=== PATIENT | male | born 1955 | race African-American/Black ===

== ENCOUNTER 2018-06-24 11:52 | Inpatient (IN) | payer BC, OTHER ==
[2018-06-24 15:12] VITALS: BMI 30.8
--- NOTE | 2018-06-24 19:50 | HP ---
"CIWA Score - CIWA Score Nausea/Vomitin-Mild Nausea/No Vomiting Muscle Tremors: 4-Moderate,w/Arms Extend Anxiety: 4-Mod. Anxious/Guarded Agitation: 4-Moderately Restless Paroxysmal Sweats: 1-Minimal Palms Moist Orientation: 1-Uncertain about Date Tacttile Disturbances: 0-None Auditory Disturbances: 0-None Visual Disturbances: 0-None Headache: 2-Mild CIWA-Ar Total Score: 17 Admission ROS BHS - HPI Chief Complaint: Here for alcohol withdrawal. Allergies/Adverse Reactions: Allergies Allergy/AdvReac Type Severity Reaction Status Date / Time No Known Allergies Allergy Verified 06/24/18 16:52 History of Present Illness: Alcohol use since age 16. Denies other substances. Denies seizures. Hx blackouts. Hx Myocardial Infract. Cardiac stent 2008. On Plavix, ASA Diabetes. Hypertension GERD Numbness in hands r/t carpal tunnel Pain in feet r/t DMK and taking Lyrica Last took all medications on 06/23/18 except for insulin, which took today. will bring Trulicity and Tresiba diabetic medications. States takes Tresiba once/week on Mondays. Search Terms: Cristofer Brito, 1955 Search Date: 06/24/2018 08:17:02 PM The Drug Utilization Report below displays all of the controlled substance prescriptions, if any, that your patient has filled in the last twelve months. The information displayed on this report is compiled from pharmacy submissions to the Department, and accurately reflects the information as submitted by the pharmacies. This report was requested by: Brandie Ayala | Reference #: [id number] Patient Name: Cristofer Brito Date: 1955 Address: [address] [place] [address] Sex: Male Rx Written Rx Dispensed Drug Quantity Days Supply Prescriber Name 05/28/2018 05/29/2018 lyrica 150 mg capsule 60 30 Susie De Luna (CORIN) 01/09/2018 01/10/2018 lyrica 150 mg capsule 60 30 Matias Posadas MD 08/03/2017 08/04/2017 lyrica 150 mg capsule 60 30 Jesus Khoury MD Exam Limitations: No Limitations, Language Barrier - Ebola screening Have you traveled outside of the country in the last 21 days: No (N) Have you had contact with anyone from an Ebola affected area: No Have you been sick,other than usual withdrawal symptoms: No Do you have a fever: No - Review of Systems Constitutional: Changes in sleep (Difficulty falling asleep) EENT: reports: No Symptoms Reported Respiratory: reports: No Symptoms reported, Other (Snores) Cardiac: reports: Other (Hx NC, Stents. Denies CP/SOB) GI: reports: Nausea, Indigestion (Acid Reflux resolved protonix) : reports: No Symptoms Reported Musculoskeletal: reports: Joint Swelling ((R) shoulder stiffness) Integumentary: reports: Lesions (Scabby lesion (R) lateral maldonado resulting from fall 2 weeks ago) Neuro: reports: Numbness (Both hands and feet), Tremors, Unsteady Gait ( sometimes) Endocrine: reports: No Symptoms Reported Hematology: reports: No Symptoms Reported Psychiatric: reports: Judgement Intact, Mood/Affect Appropiate, Orientated x3, Agitated, Anxious, Depressed (Denies thoughts of harming self or others) Patient History - Patient Medical History Hx Anemia: No Hx Asthma: No Hx Chronic Obstructive Pulmonary Disease (COPD): No Hx Cancer: No Hx Cardiac Disorders: Yes (MYocardial Infarct, Cardiac stent ) Hx Congestive Heart Failure: No Hx Hypertension: Yes (on meds) Hx Hypercholesterolemia: Yes (on meds) Hx Pacemaker: No HX Cerebrovascular Accident: No Hx Seizures: No Hx Diabetes: Yes (FS 267) Hx Gastrointestinal Disorders: Yes (GERD on protonix) Hx Liver Disease: No Hx Genitourinary Disorders: No Hx Sexually Transmitted Disorders: No Hx Renal Disease (ESRD): No Hx Thyroid Disease: No Hx Human Immunodeficiency Virus (HIV): No Hx Hepatitis C: No Hx Depression: Yes (on meds F/u by PCP @ [facility]) Hx Suicide Attempt: No Hx Bipolar Disorder: No Hx Schizophrenia: No - Patient Surgical History Past Surgical History: Yes Hx Neurologic Surgery: No Hx Cataract Extraction: Yes (YEAR AGO) Hx Cardiac Surgery: No Hx Lung Surgery: No Hx Breast Surgery: No Hx Breast Biopsy: No Hx Abdominal Surgery: No Hx Appendectomy: No Hx Cholecystectomy: No Hx Genitourinary Surgery: No Hx Section: No Hx Orthopedic Surgery: No - PPD History Previous Implant?: Yes Documented Results: Negative w/proof Implanted On Prior R Admission?: Yes Date: 01/14/14 PPD to be Administered?: Yes - Smoking Cessation Smoking history: Former smoker (Stopped in 2008) Have you smoked in the past 12 months: No Hx Chewing Tobacco Use: No Initiated information on smoking cessation: No - Substance & Tx. History Hx Alcohol Use: Yes Hx Substance Use: Yes Substance Use Type: Alcohol Hx Substance Use Treatment: Yes (detox, ) - Substances Abused Alcohol Route: Oral Frequency: Daily Amount used: LIQUOR- 2 PINTS, BEER- 2 SIX PACK Age of first use: 16 Date of Last Use: 06/23/18 Family Disease History - Family Disease History Family Disease History: Diabetes: Mother, Sister, [place]: Sister, Other: Brother ( alcoholics) Admission Physical Exam BHS - Vital Signs Vital Signs: Vital Signs - 24 hr 06/24/18 15:10 Temperature 97.5 F L Pulse Rate 86 Respiratory 20 Rate Blood Pressure 152/87 - Physical General Appearance: Yes: Nourished, Mild Distress, Tremorous, Irritable, Sweating, Anxious HEENTM: Yes: EOMI, Hearing grossly Normal, Normocephalic, Normal Voice, Other ( IOL's bilaterally) Respiratory: Yes: Chest Non-Tender, Lungs Clear, Normal Breath Sounds, No Respiratory Distress Neck: Yes: No masses,lesions,Nodules, Supple Breast: Yes: Breast Exam Deferred Cardiology: Yes: Regular Rhythm, Regular Rate, S1, S2 Abdominal: Yes: Non Tender, Soft, Increased Bowel Sounds, Protuberent ( increased abdomoinal adiposity) Genitourinary: Yes: Within Normal Limits Back: Yes: Normal Inspection Musculoskeletal: Yes: full range of Motion, Joint Stiffness (Crepitus (R) shoulder) Extremities: Yes: Normal Capillary Refill, Normal Range of Motion, Non-Tender, Tremors (of hands upon extension) Neurological: Yes: delivery and installation subcontractor II-XII NML intact, Fully Oriented, Alert, Motor Strength 5/5, Normal Mood/Affect, Normal Response Integumentary: Yes: Normal Color, Dry (Decreaseed skin turgor, dry mucous membranes), Warm, Diaphoresis, Other (1 mc circular scabby lesion (R) lateral maldonado area, dry, flaky.) Lymphatic: Yes: Within Normal Limits - Diagnostic (1) Alcohol dependence with uncomplicated withdrawal Current Visit: Yes Status: Acute (2) HTN (hypertension) Current Visit: Yes Status: Chronic Qualifiers: Hypertension type: essential hypertension Qualified Code(s): I10 - Essential (primary) hypertension (3) Diabetes Current Visit: Yes Status: Chronic Qualifiers: Diabetes mellitus type: type 2 Diabetes mellitus shelter insulin use: with termite control service representative use Diabetes mellitus complication status: with hyperglycemia Qualified Code(s): E11.65 - Type 2 diabetes mellitus with hyperglycemia; Z79.4 - termite control technician (current) use of insulin (4) GERD (gastroesophageal reflux disease) Current Visit: Yes Status: Chronic Qualifiers: Esophagitis presence: esophagitis presence not specified Qualified Code(s) : K21.9 - Gastro-esophageal reflux disease without esophagitis (5) History of heart artery stent Current Visit: Yes Status: Chronic (6) History of cataract extraction Current Visit: Yes Status: Chronic Qualifiers: Laterality: unspecified laterality Qualified Code(s): Z98.49 - Cataract extraction status, unspecified eye (7) Obesity (BMI 30.0-34.9) Current Visit: Yes Status: Chronic (8) Dehydration Current Visit: Yes Status: Acute (9) Asymptomatic old myocardial infarction Current Visit: Yes Status: Chronic (10) Carpal tunnel syndrome Current Visit: Yes Status: Chronic Qualifiers: Laterality: bilateral Qualified Code(s): G56.03 - Carpal tunnel syndrome, bilateral upper limbs (11) Disturbance of skin sensation Current Visit: Yes Status: Chronic (12) Skin lesion Current Visit: Yes Status: Chronic Cleared for Admission BHS - Detox or Rehab [facility] Level of Care: Medically Managed Detox Regimen/Protocol: Librium S Breath Alcohol Content Breath Alcohol Content: 0 Urine Drug Screen - Results Drug Screen Negative: Yes"
[2018-06-24] MEDS ORDERED: MAGNESIUM HYDROX 2400MG/30ML ORAL SUSPENSION 30 ML CUP PO PRN (20:40)
[2018-06-24] MEDS ORDERED: MAG HYDROX/AL HYDROX/SIMETH 30 ML UNIT-DOSE CUP PO PRN (20:40)
[2018-06-24] MEDS ORDERED: chlordiazePOXIDE HCL 25 MG CAPSULE PO PRN (20:40)
[2018-06-24] MEDS ORDERED: guaiFENesin/D-METHORPHAN HB 10 ML UNIT-DOSE CUPS PO PRN (20:40)
[2018-06-24] MEDS ORDERED: MENTHOL/PHENOL 1 EACH UD MM PRN (20:40)
[2018-06-24] MEDS ORDERED: P-EPHED 60MG/TRIPROLIDI 2.5MG TABLET PO PRN (20:40)
[2018-06-24] MEDS ORDERED: LOPERAMIDE HCL 2 MG CAPSULE PO PRN (20:40)
[2018-06-24] MEDS ORDERED: ACETAMINOPHEN 325 MG TABLET (FP) PO PRN (20:40)
[2018-06-24] MEDS ORDERED: MAGNESIUM CITRATE 300 ML BOTTLE PO PRN (20:40)
[2018-06-24] MEDS ORDERED: chlordiazePOXIDE HCL 25 MG CAPSULE PO ONE (21:15)
[2018-06-24] MEDS ORDERED: MELATONIN 5 MG TABLETS PO PRN (22:00)
[2018-06-24] MEDS: THIAMINE HCL 100 MG TABLET (FP) PO SCH (22:28)
[2018-06-24] MEDS: ATORVASTATIN CA 80 MG TABLET (FP) PO SCH (22:28)
[2018-06-24] MEDS: chlordiazePOXIDE HCL 25 MG CAPSULE PO SCH (22:28)
[2018-06-24] MEDS: PREGABALIN 75 MG CAPSULE PO SCH (22:28)
[2018-06-24] MEDS: BACITRACIN 0.9 GM PACKET TP SCH (22:29)
[2018-06-24] MEDS: INSULIN SLIDING SCALE (NOVOLOG) 1 VIAL SQ SCH (22:31)
[2018-06-25 00:53] LABS: URINE APPEARANCE CLEAR; URINE BILIRUBIN NEGATIVE (<2.0 mg/dL); URINE COLOR YELLOW; URINE GLUCOSE (UA) 3+ (NEGATIVE); URINE KETONE NEGATIVE (NEGATIVE); URINE LEUK ESTERASE NEGATIVE (NEGATIVE); URINE NITRITE NEGATIVE (NEGATIVE); URINE PROTEIN NEGATIVE (NEGATIVE); URINE UROBILINOGEN NEGATIVE mg/dL (0.2-1.0)
[2018-06-25] MEDS: chlordiazePOXIDE HCL 25 MG CAPSULE PO SCH ×4 (06:00→22:45)
[2018-06-25] MEDS: INSULIN SLIDING SCALE (NOVOLOG) 1 VIAL SQ SCH ×4 (07:13→23:09)
--- NOTE | 2018-06-25 08:46 | CONSULT ---
[facility] Psychiatric Consult - Data Date of interview: 06/25/18 Admission source: [facility] Identifying data: This is a 63 years old male, , father of one, living with family, on SSI, with no psychiatric hospitalization history, with long history of Alcohol dependence, multiple medical problems history, is reporting Alcohol withdrawal symptoms and seeking detox. Patient is a chronic Alcoholic, abusing Alcohol since 16 years old.. Denies other street substances abuse. Substance Abuse History: - Smoking Cessation. Smoking history: Former smoker ( Stopped in 2008). Have you smoked in the past 12 months: No. Hx Chewing Tobacco Use: No. Initiated information on smoking cessation: No. - Substance & Tx. History. Hx Alcohol Use: Yes. Hx Substance Use: Yes. Substance Use Type : Alcohol. Hx Substance Use Treatment: Yes (detox, ). - Substances Abused. * * Alcohol. Route: Oral. Frequency: Daily. Amount used: LIQUOR- 2 PINTS, BEER - 2 SIX PACK. Age of first use: 16. Date of Last Use: 06/23/18 Medical History: DM-II, Obesity, GERD, HTN, SD history, Cardiac stent placement history, Carpal Tunnel syndrom history Psychiatric History: Patient reports history of depression, denies suicidal, homicidal history, denies. psychiatric hospitalization history as well, reports currently stable on: Cymbalta 30mg poqd Physical/Sexual Abuse/Trauma History: Denies Additional Comment: Cymbalta 30mg poqd Mental Status Exam - Mental Status Exam Alert and Oriented to: Person Cognitive Function: Fair Patient Appearance: Unkempt Mood: Sad Affect: Flat Patient Behavior: Sedated Speech Pattern: Delayed Voice Loudness: Mildly Soft/Quiet Thought Process: Circumstantial Thought Disorder: Being Controlled Hallucinations: Denies Suicidal Ideation: Denies Homicidal Ideation: Denies Insight/Judgement: Fair Sleep: Difficulty falling asleep Appetite: Weight gain Muscle strength/Tone: Mild Hypotonicity Gait/Station: Shuffling Additional Comments: Cymbalta 30mg poqd Psychiatric Findings - Problem List ([place] 1, 2,3) (1) Alcohol dependence with uncomplicated withdrawal Current Visit: Yes Status: Acute (2) Asymptomatic old myocardial infarction Current Visit: Yes Status: Chronic (3) Carpal tunnel syndrome Current Visit: Yes Status: Chronic Qualifiers: Laterality: bilateral Qualified Code(s): G56.03 - Carpal tunnel syndrome, bilateral upper limbs (4) Diabetes Current Visit: Yes Status: Chronic Qualifiers: Diabetes mellitus type: type 2 Diabetes mellitus prison insulin use: with moth exterminator use Diabetes mellitus complication status: with hyperglycemia Qualified Code(s): E11.65 - Type 2 diabetes mellitus with hyperglycemia; Z79.4 - long term (current) use of insulin (5) GERD (gastroesophageal reflux disease) Current Visit: Yes Status: Chronic Qualifiers: Esophagitis presence: esophagitis presence not specified Qualified Code(s) : K21.9 - Gastro-esophageal reflux disease without esophagitis (6) HTN (hypertension) Current Visit: Yes Status: Chronic Qualifiers: Hypertension type: essential hypertension Qualified Code(s): I10 - Essential (primary) hypertension (7) History of heart artery stent Current Visit: Yes Status: Chronic (8) Obesity (BMI 30.0-34.9) Current Visit: Yes Status: Chronic - Initial Treatment Plan Initial Treatment Plan: Cymbalta 30mg poqd
--- NOTE | 2018-06-25 10:02 | EKG ---
Test Reason : Blood Pressure : / mmHG Vent. Rate : 085 BPM Atrial Rate : 085 BPM P-R Int : 204 ms QRS Dur : 084 ms QT Int : 356 ms P-R-T Axes : 058 -29 066 degrees QTc Int : 423 ms NORMAL SINUS RHYTHM POSSIBLE LEFT ATRIAL ENLARGEMENT LEFT VENTRICULAR HYPERTROPHY INFERIOR INFARCT , AGE UNDETERMINED ABNORMAL ECG NO PREVIOUS ECGS AVAILABLE Confirmed by SANFORD RUBI MD ([id number]) on 06/25/2018 10:02:01 AM Referred By: Confirmed By:SANFORD RUBI MD
[2018-06-25 10:38] LABS: HEMATOCRIT 40.7 % (35.4-49); HEMOGLOBIN 13.2 GM/dL (11.7-16.9); MCH 30.5 pg (25.7-33.7); MCHC 32.3 g/dl (32.0-35.9); MEAN CELL VOLUME 94.3 fl (80-96); PLATELET COUNT 178 K/MM3 (134-434); RBC 4.32 M/mm3 (4.00-5.60); RDW 14.4 % (11.9-15.9); WHITE BLOOD COUNT 5.3 K/mm3 (4.0-10.0)
[2018-06-25] MEDS: ASPIRIN 81 MG CHEWABLE TABLETS PO SCH (10:38)
[2018-06-25] MEDS: PANTOPRAZOLE 40 MG TABLET (FP) PO SCH (10:39)
[2018-06-25] MEDS: PRENATAL VITAMINS W/ FOLIC ACID TABLET (FP) PO SCH (10:39)
[2018-06-25] MEDS: BACITRACIN 0.9 GM PACKET TP SCH ×2 (10:39→23:09)
[2018-06-25] MEDS: CLOPIDOGREL BISULFATE 75 MG TABLET (FP) PO SCH (10:39)
[2018-06-25] MEDS: PREGABALIN 75 MG CAPSULE PO SCH ×2 (10:39→22:45)
[2018-06-25] MEDS: LOSARTAN POTASSIUM 50 MG TABLET (FP) PO SCH (10:39)
[2018-06-25] MEDS: METOPROLOL TARTRATE 50 MG TABLET (FP) PO SCH (10:39)
[2018-06-25] MEDS: HYDROCHLOROTHIAZIDE 25 MG TABLET (FP) PO SCH (10:41)
[2018-06-25] MEDS: DULoxetine HCL 30 MG CAPSULE.DR (FP) PO SCH (10:41)
[2018-06-25 11:04] LABS: CHLORIDE 105 mmol/L (98-107); POTASSIUM 4.3 mmol/L (3.5-5.1); SODIUM 143 mmol/L (136-145)
[2018-06-25 11:22] LABS: ALBUMIN 3.2 g/dl (3.4-5.0); ALK PHOS 102 U/L (45-117); ANION GAP 9 MMOL/L (8-16); BILIRUBIN,TOTAL 0.6 mg/dL (0.2-1.0); BLOOD UREA NITROGEN 23 mg/dL (7-18); CALCIUM 8.8 mg/dL (8.5-10.1); CO2 29 mmol/L (21-32); CREATININE 1.6 mg/dL (0.55-1.3); GLUCOSE,RANDOM 202 mg/dL (74-106); SGOT/AST 39 U/L (15-37); SGPT/ALT 50 U/L (13-61); TOT PROT 6.3 g/dl (6.4-8.2)
[2018-06-25] MEDS ORDERED: INSULIN (NOVOLOG) ASPART 100 UNITS/ML 10ML VIAL ONE ×2 (11:49→17:52)
--- NOTE | 2018-06-25 15:30 | PN ---
[facility] CIWA - CIWA Score Nausea/Vomitin-Mild Nausea/No Vomiting Muscle Tremors: 4-Moderate,w/Arms Extend Anxiety: 3 Agitation: 4-Moderately Restless Paroxysmal Sweats: 1-Minimal Palms Moist Orientation: 1-Uncertain about Date Tacttile Disturbances: 1-Very Mild Itch/Numbness Auditory Disturbances: 0-None Visual Disturbances: 0-None Headache: 0-None Present CIWA-Ar Total Score: 15 BHS Progress Note (SOAP) Subjective: tremor sweat diarrhea restlessness irritable anxiety Objective: 06/25/18 15:30 Vital Signs Temperature 97.9 F 06/25/18 13:19 Pulse Rate 86 06/25/18 13:19 Respiratory Rate 20 06/25/18 13:19 Blood Pressure 138/74 06/25/18 13:19 O2 Sat by Pulse Oximetry (%) Laboratory Last Values WBC 5.3 K/mm3 (4.0-10.0) 06/25/18 08:00 RBC 4.32 M/mm3 (4.00-5.60) 06/25/18 08:00 Hgb 13.2 GM/dL (11.7-16.9) 06/25/18 08:00 Hct 40.7 % (35.4-49) 06/25/18 08:00 MCV 94.3 fl (80-96) 06/25/18 08:00 MCH 30.5 pg (25.7-33.7) 06/25/18 08:00 MCHC 32.3 g/dl (32.0-35.9) 06/25/18 08:00 RDW 14.4 % (11.9-15.9) 06/25/18 08:00 Plt Count 178 K/MM3 (134-434) 06/25/18 08:00 MPV 10.0 fl (7.5-11.1) 06/25/18 08:00 Sodium 143 mmol/L (136-145) 06/25/18 08:00 Potassium 4.3 mmol/L (3.5-5.1) 06/25/18 08:00 Chloride 105 mmol/L (98-107) 06/25/18 08:00 Carbon Dioxide 29 mmol/L (21-32) 06/25/18 08:00 Anion Gap 9 MMOL/L (8-16) 06/25/18 08:00 BUN 23 mg/dL (7-18) H 06/25/18 08:00 Creatinine 1.6 mg/dL (0.55-1.3) H 06/25/18 08:00 Creat Clearance w eGFR 44.02 (>60) 06/25/18 08:00 POC Glucometer 214 UNITS (80-120) 06/25/18 05:57 Random Glucose 202 mg/dL (74-106) H 06/25/18 08:00 Calcium 8.8 mg/dL (8.5-10.1) 06/25/18 08:00 Total Bilirubin 0.6 mg/dL (0.2-1.0) 06/25/18 08:00 AST 39 U/L (15-37) H 06/25/18 08:00 ALT 50 U/L (13-61) 06/25/18 08:00 Alkaline Phosphatase 102 U/L (45-117) 06/25/18 08:00 Total Protein 6.3 g/dl (6.4-8.2) L 06/25/18 08:00 Albumin 3.2 g/dl (3.4-5.0) L 06/25/18 08:00 Urine Color Yellow 06/24/18 23:28 Urine Appearance Clear 06/24/18 23:28 Urine pH 5.0 (5.0-8.0) 06/24/18 23:28 Ur Specific [place] 1.013 (1.001-1.035) 06/24/18 23:28 Urine Protein Negative (NEGATIVE) 06/24/18 23:28 Urine Glucose (UA) 3+ (NEGATIVE) H 06/24/18 23:28 Urine Ketones Negative (NEGATIVE) 06/24/18 23:28 Urine Blood Negative (NEGATIVE) 06/24/18 23:28 Urine Nitrite Negative (NEGATIVE) 06/24/18 23:28 Urine Bilirubin Negative (<2.0 mg/dL) 06/24/18 23:28 Urine Urobilinogen Negative mg/dL (0.2-1.0) 06/24/18 23:28 Ur Leukocyte Esterase Negative (NEGATIVE) 06/24/18 23:28 RPR Titer Nonreactive (NONREACTIVE) 06/25/18 08:00 lab noted Assessment: 06/25/18 15:31 withdrawal sx Plan: continue detox
[2018-06-25] MEDS: THIAMINE HCL 100 MG TABLET (FP) PO SCH (22:45)
[2018-06-25] MEDS: ATORVASTATIN CA 80 MG TABLET (FP) PO SCH (22:45)
[2018-06-26] MEDS: chlordiazePOXIDE HCL 25 MG CAPSULE PO SCH ×3 (05:14→17:14)
[2018-06-26] MEDS ORDERED: INSULIN (NOVOLOG) ASPART 100 UNITS/ML 10ML VIAL ONE ×4 (07:41→22:17)
[2018-06-26] MEDS: INSULIN SLIDING SCALE (NOVOLOG) 1 VIAL SQ SCH ×4 (07:59→22:15)
[2018-06-26 10:19] LABS: HEMATOCRIT 40.5 % (35.4-49); HEMOGLOBIN 12.9 GM/dL (11.7-16.9); MCH 30.3 pg (25.7-33.7); MCHC 31.8 g/dl (32.0-35.9); MEAN CELL VOLUME 95.2 fl (80-96); MEAN PLT VOLUME 10.2 fl (7.5-11.1); PLATELET COUNT 196 K/MM3 (134-434); RBC 4.25 M/mm3 (4.00-5.60); RDW 14.3 % (11.9-15.9); WHITE BLOOD COUNT 4.3 K/mm3 (4.0-10.0)
[2018-06-26] MEDS: PANTOPRAZOLE 40 MG TABLET (FP) PO SCH (11:00)
[2018-06-26] MEDS: CLOPIDOGREL BISULFATE 75 MG TABLET (FP) PO SCH (11:02)
[2018-06-26] MEDS: BACITRACIN 0.9 GM PACKET TP SCH ×2 (11:13→22:20)
[2018-06-26] MEDS: PRENATAL VITAMINS W/ FOLIC ACID TABLET (FP) PO SCH (11:13)
[2018-06-26] MEDS: ASPIRIN 81 MG CHEWABLE TABLETS PO SCH (11:13)
[2018-06-26] MEDS: PREGABALIN 75 MG CAPSULE PO SCH ×2 (11:13→22:20)
[2018-06-26] MEDS: METOPROLOL TARTRATE 50 MG TABLET (FP) PO SCH (11:14)
[2018-06-26] MEDS: HYDROCHLOROTHIAZIDE 25 MG TABLET (FP) PO SCH (11:14)
[2018-06-26] MEDS: LOSARTAN POTASSIUM 50 MG TABLET (FP) PO SCH (11:14)
[2018-06-26] MEDS: DULoxetine HCL 30 MG CAPSULE.DR (FP) PO SCH (11:19)
--- NOTE | 2018-06-26 11:35 | PN ---
[facility] CIWA - CIWA Score Nausea/Vomitin-No Nausea/No Vomiting Muscle Tremors: 3 Anxiety: 4-Mod. Anxious/Guarded Agitation: 3 Paroxysmal Sweats: 1-Minimal Palms Moist Orientation: 1-Uncertain about Date Tacttile Disturbances: 1-Very Mild Itch/Numbness Auditory Disturbances: 0-None Visual Disturbances: 0-None Headache: 0-None Present CIWA-Ar Total Score: 13 BHS Progress Note (SOAP) Subjective: sweat tremor restlessness anxiety trouble sleep at night Objective: 06/26/18 11:33 Vital Signs Temperature 97.2 F L 06/26/18 09:50 Pulse Rate 81 06/26/18 09:50 Respiratory Rate 18 06/26/18 09:50 Blood Pressure 129/67 06/26/18 09:50 O2 Sat by Pulse Oximetry (%) Laboratory Last Values WBC 4.3 K/mm3 (4.0-10.0) 06/26/18 07:00 RBC 4.25 M/mm3 (4.00-5.60) 06/26/18 07:00 Hgb 12.9 GM/dL (11.7-16.9) 06/26/18 07:00 Hct 40.5 % (35.4-49) 06/26/18 07:00 MCV 95.2 fl (80-96) 06/26/18 07:00 MCH 30.3 pg (25.7-33.7) 06/26/18 07:00 MCHC 31.8 g/dl (32.0-35.9) L 06/26/18 07:00 RDW 14.3 % (11.9-15.9) 06/26/18 07:00 Plt Count 196 K/MM3 (134-434) 06/26/18 07:00 MPV 10.2 fl (7.5-11.1) 06/26/18 07:00 Sodium 143 mmol/L (136-145) 06/25/18 08:00 Potassium 4.3 mmol/L (3.5-5.1) 06/25/18 08:00 Chloride 105 mmol/L (98-107) 06/25/18 08:00 Carbon Dioxide 29 mmol/L (21-32) 06/25/18 08:00 Anion Gap 9 MMOL/L (8-16) 06/25/18 08:00 BUN 23 mg/dL (7-18) H 06/25/18 08:00 Creatinine 1.6 mg/dL (0.55-1.3) H 06/25/18 08:00 Creat Clearance w eGFR 44.02 (>60) 06/25/18 08:00 POC Glucometer 301 UNITS (80-120) 06/26/18 05:17 Random Glucose 202 mg/dL (74-106) H 06/25/18 08:00 Calcium 8.8 mg/dL (8.5-10.1) 06/25/18 08:00 Total Bilirubin 0.6 mg/dL (0.2-1.0) 06/25/18 08:00 AST 39 U/L (15-37) H 06/25/18 08:00 ALT 50 U/L (13-61) 06/25/18 08:00 Alkaline Phosphatase 102 U/L (45-117) 06/25/18 08:00 Total Protein 6.3 g/dl (6.4-8.2) L 06/25/18 08:00 Albumin 3.2 g/dl (3.4-5.0) L 06/25/18 08:00 Urine Color Yellow 06/24/18 23:28 Urine Appearance Clear 06/24/18 23:28 Urine pH 5.0 (5.0-8.0) 06/24/18 23:28 Ur Specific [place] 1.013 (1.001-1.035) 06/24/18 23:28 Urine Protein Negative (NEGATIVE) 06/24/18 23:28 Urine Glucose (UA) 3+ (NEGATIVE) H 06/24/18 23:28 Urine Ketones Negative (NEGATIVE) 06/24/18 23:28 Urine Blood Negative (NEGATIVE) 06/24/18 23:28 Urine Nitrite Negative (NEGATIVE) 06/24/18 23:28 Urine Bilirubin Negative (<2.0 mg/dL) 06/24/18 23:28 Urine Urobilinogen Negative mg/dL (0.2-1.0) 06/24/18 23:28 Ur Leukocyte Esterase Negative (NEGATIVE) 06/24/18 23:28 RPR Titer Nonreactive (NONREACTIVE) 06/25/18 08:00 lab noted Assessment: 06/26/18 11:34 withdrawal sx Plan: continue detox
[2018-06-26] MEDS: ATORVASTATIN CA 80 MG TABLET (FP) PO SCH (22:20)
[2018-06-26] MEDS: chlordiazePOXIDE 5 MG CAPSULE PO SCH (22:20)
[2018-06-26] MEDS: THIAMINE HCL 100 MG TABLET (FP) PO SCH (22:23)
[2018-06-27] MEDS: chlordiazePOXIDE 5 MG CAPSULE PO SCH ×3 (06:00→17:12)
[2018-06-27] MEDS ORDERED: INSULIN (NOVOLOG) ASPART 100 UNITS/ML 10ML VIAL ONE ×2 (07:52→22:52)
[2018-06-27] MEDS: INSULIN SLIDING SCALE (NOVOLOG) 1 VIAL SQ SCH ×4 (07:53→22:55)
[2018-06-27] MEDS: BACITRACIN 0.9 GM PACKET TP SCH ×2 (10:30→22:46)
[2018-06-27] MEDS: ASPIRIN 81 MG CHEWABLE TABLETS PO SCH (10:31)
[2018-06-27] MEDS: CLOPIDOGREL BISULFATE 75 MG TABLET (FP) PO SCH (10:31)
[2018-06-27] MEDS: PRENATAL VITAMINS W/ FOLIC ACID TABLET (FP) PO SCH (10:31)
[2018-06-27] MEDS: PANTOPRAZOLE 40 MG TABLET (FP) PO SCH (10:31)
[2018-06-27] MEDS: HYDROCHLOROTHIAZIDE 25 MG TABLET (FP) PO SCH (10:31)
[2018-06-27] MEDS: METOPROLOL TARTRATE 50 MG TABLET (FP) PO SCH (10:31)
[2018-06-27] MEDS: PREGABALIN 75 MG CAPSULE PO SCH ×2 (10:31→22:46)
[2018-06-27] MEDS: LOSARTAN POTASSIUM 50 MG TABLET (FP) PO SCH (10:31)
[2018-06-27] MEDS: DULoxetine HCL 30 MG CAPSULE.DR (FP) PO SCH (11:57)
--- NOTE | 2018-06-27 12:06 | PN ---
BHS Progress Note (SOAP) Subjective: interrupted sleep, sweats, soreness, needs a cane . Objective: 06/27/18 12:03 Vital Signs Temperature 98.2 F 06/27/18 09:34 Pulse Rate 77 06/27/18 09:34 Respiratory Rate 18 06/27/18 09:34 Blood Pressure 103/70 06/27/18 09:34 O2 Sat by Pulse Oximetry (%) Laboratory Tests 06/24/18 06/24/18 06/24/18 16:56 22:31 23:28 WBC RBC Hgb Hct MCV MCH MCHC RDW Plt Count MPV Sodium Potassium Chloride Carbon Dioxide Anion Gap BUN Creatinine Creat Clearance w eGFR POC Glucometer 267 156 Random Glucose Calcium Total Bilirubin AST ALT Alkaline Phosphatase Total Protein Albumin Urine Color Yellow Urine Appearance Clear Urine pH 5.0 Ur Specific [place] 1.013 Urine Protein Negative Urine Glucose (UA) 3+ H Urine Ketones Negative Urine Blood Negative Urine Nitrite Negative Urine Bilirubin Negative Urine Urobilinogen Negative Ur Leukocyte Esterase Negative RPR Titer 06/25/18 06/25/18 06/25/18 05:57 08:00 08:00 WBC 5.3 RBC 4.32 Hgb 13.2 Hct 40.7 MCV 94.3 MCH 30.5 MCHC 32.3 RDW 14.4 Plt Count 178 MPV 10.0 Sodium 143 Potassium 4.3 Chloride 105 Carbon Dioxide 29 Anion Gap 9 BUN 23 H Creatinine 1.6 H Creat Clearance w eGFR 44.02 POC Glucometer 214 Random Glucose 202 H Calcium 8.8 Total Bilirubin 0.6 AST 39 H ALT 50 Alkaline Phosphatase 102 Total Protein 6.3 L Albumin 3.2 L Urine Color Urine Appearance Urine pH Ur Specific [place] Urine Protein Urine Glucose (UA) Urine Ketones Urine Blood Urine Nitrite Urine Bilirubin Urine Urobilinogen Ur Leukocyte Esterase RPR Titer 06/25/18 06/25/18 06/25/18 08:00 11:17 16:28 WBC RBC Hgb Hct MCV MCH MCHC RDW Plt Count MPV Sodium Potassium Chloride Carbon Dioxide Anion Gap BUN Creatinine Creat Clearance w eGFR POC Glucometer 432 309 Random Glucose Calcium Total Bilirubin AST ALT Alkaline Phosphatase Total Protein Albumin Urine Color Urine Appearance Urine pH Ur Specific [place] Urine Protein Urine Glucose (UA) Urine Ketones Urine Blood Urine Nitrite Urine Bilirubin Urine Urobilinogen Ur Leukocyte Esterase RPR Titer Nonreactive 06/25/18 06/26/1818 21:21 05:17 07:00 WBC 4.3 RBC 4.25 Hgb 12.9 Hct 40.5 MCV 95.2 MCH 30.3 MCHC 31.8 L RDW 14.3 Plt Count 196 MPV 10.2 Sodium Potassium Chloride Carbon Dioxide Anion Gap BUN Creatinine Creat Clearance w eGFR POC Glucometer 270 301 Random Glucose Calcium Total Bilirubin AST ALT Alkaline Phosphatase Total Protein Albumin Urine Color Urine Appearance Urine pH Ur Specific [place] Urine Protein Urine Glucose (UA) Urine Ketones Urine Blood Urine Nitrite Urine Bilirubin Urine Urobilinogen Ur Leukocyte Esterase RPR Titer 06/26/18 06/26/18 06/26/18 11:32 16:42 22:13 WBC RBC Hgb Hct MCV MCH MCHC RDW Plt Count MPV Sodium Potassium Chloride Carbon Dioxide Anion Gap BUN Creatinine Creat Clearance w eGFR POC Glucometer 352 472 > 600 Random Glucose Calcium Total Bilirubin AST ALT Alkaline Phosphatase Total Protein Albumin Urine Color Urine Appearance Urine pH Ur Specific [place] Urine Protein Urine Glucose (UA) Urine Ketones Urine Blood Urine Nitrite Urine Bilirubin Urine Urobilinogen Ur Leukocyte Esterase RPR Titer 06/26/18 06/27/18 22:14 07:48 WBC RBC Hgb Hct MCV MCH MCHC RDW Plt Count MPV Sodium Potassium Chloride Carbon Dioxide Anion Gap BUN Creatinine Creat Clearance w eGFR POC Glucometer 398 287 Random Glucose Calcium Total Bilirubin AST ALT Alkaline Phosphatase Total Protein Albumin Urine Color Urine Appearance Urine pH Ur Specific [place] Urine Protein Urine Glucose (UA) Urine Ketones Urine Blood Urine Nitrite Urine Bilirubin Urine Urobilinogen Ur Leukocyte Esterase RPR Titer pt aox3 lying in bed in nad Assessment: 06/27/18 12:04 withdrawal sx's musculosketal pain , rt leg cramping dm 287 Plan: cont. detox increase fluids cane motrin prn
[2018-06-27] MEDS ORDERED: INSULIN (NOVOLOG) ASPART 100 UNITS/ML 10ML VIAL SQ ONE (12:24)
[2018-06-27] MEDS: ATORVASTATIN CA 80 MG TABLET (FP) PO SCH (22:47)
[2018-06-27] MEDS: chlordiazePOXIDE HCL 10 MG CAPSULE PO SCH (22:53)
[2018-06-27] MEDS: THIAMINE HCL 100 MG TABLET (FP) PO SCH (22:53)
[2018-06-28] MEDS: chlordiazePOXIDE HCL 10 MG CAPSULE PO SCH ×2 (05:21→11:17)
[2018-06-28] MEDS ORDERED: INSULIN (NOVOLOG) ASPART 100 UNITS/ML 10ML VIAL ONE ×2 (07:27→11:48)
[2018-06-28] MEDS: INSULIN SLIDING SCALE (NOVOLOG) 1 VIAL SQ SCH ×2 (07:49→11:51)
[2018-06-28] MEDS: DULoxetine HCL 30 MG CAPSULE.DR (FP) PO SCH (11:17)
[2018-06-28] MEDS: ASPIRIN 81 MG CHEWABLE TABLETS PO SCH (11:17)
[2018-06-28] MEDS: HYDROCHLOROTHIAZIDE 25 MG TABLET (FP) PO SCH (11:17)
[2018-06-28] MEDS: PANTOPRAZOLE 40 MG TABLET (FP) PO SCH (11:17)
[2018-06-28] MEDS: CLOPIDOGREL BISULFATE 75 MG TABLET (FP) PO SCH (11:17)
[2018-06-28] MEDS: PREGABALIN 75 MG CAPSULE PO SCH (11:17)
[2018-06-28] MEDS: PRENATAL VITAMINS W/ FOLIC ACID TABLET (FP) PO SCH (11:18)
[2018-06-28] MEDS: BACITRACIN 0.9 GM PACKET TP SCH (11:18)
[2018-06-28] MEDS: METOPROLOL TARTRATE 50 MG TABLET (FP) PO SCH (11:19)
[2018-06-28] MEDS: LOSARTAN POTASSIUM 50 MG TABLET (FP) PO SCH (11:20)
[2018-06-28 13:36] VITALS: BP 150/80; PULSE 86; TEMP 98.4
--- NOTE | 2018-06-28 14:13 | DS ---
[facility] Detox Discharge Summary Admission Date: 06/24/18 Discharge Date: 06/28/18 - History Present History: Alcohol Dependence Additional Comments: 63 years old male admitted on 06/24/18 for alcohol withdrawal sx completed detox regimen tolerated well denies alcohol withdrawal sx alert oriented x 3 no acute distress [facility] - Physical Exam Results Vital Signs: Vital Signs Temperature 98.4 F 06/28/18 13:36 Pulse Rate 86 06/28/18 13:36 Respiratory Rate 18 06/28/18 13:36 Blood Pressure 150/80 06/28/18 13:36 O2 Sat by Pulse Oximetry (%) Pertinent Admission Physical Exam Findings: alcohol withdrawal sx Vital Signs Temperature 98.4 F 06/28/18 13:36 Pulse Rate 86 06/28/18 13:36 Respiratory Rate 18 06/28/18 13:36 Blood Pressure 150/80 06/28/18 13:36 O2 Sat by Pulse Oximetry (%) Laboratory Last Values WBC 4.3 K/mm3 (4.0-10.0) 06/26/18 07:00 RBC 4.25 M/mm3 (4.00-5.60) 06/26/18 07:00 Hgb 12.9 GM/dL (11.7-16.9) 06/26/18 07:00 Hct 40.5 % (35.4-49) 06/26/18 07:00 MCV 95.2 fl (80-96) 06/26/18 07:00 MCH 30.3 pg (25.7-33.7) 06/26/18 07:00 MCHC 31.8 g/dl (32.0-35.9) L 06/26/18 07:00 RDW 14.3 % (11.9-15.9) 06/26/18 07:00 Plt Count 196 K/MM3 (134-434) 06/26/18 07:00 MPV 10.2 fl (7.5-11.1) 06/26/18 07:00 Sodium 143 mmol/L (136-145) 06/25/18 08:00 Potassium 4.3 mmol/L (3.5-5.1) 06/25/18 08:00 Chloride 105 mmol/L (98-107) 06/25/18 08:00 Carbon Dioxide 29 mmol/L (21-32) 06/25/18 08:00 Anion Gap 9 MMOL/L (8-16) 06/25/18 08:00 BUN 23 mg/dL (7-18) H 06/25/18 08:00 Creatinine 1.6 mg/dL (0.55-1.3) H 06/25/18 08:00 Creat Clearance w eGFR 44.02 (>60) 06/25/18 08:00 POC Glucometer 435 UNITS (80-120) 06/28/18 11:41 Random Glucose 202 mg/dL (74-106) H 06/25/18 08:00 Calcium 8.8 mg/dL (8.5-10.1) 06/25/18 08:00 Total Bilirubin 0.6 mg/dL (0.2-1.0) 06/25/18 08:00 AST 39 U/L (15-37) H 06/25/18 08:00 ALT 50 U/L (13-61) 06/25/18 08:00 Alkaline Phosphatase 102 U/L (45-117) 06/25/18 08:00 Total Protein 6.3 g/dl (6.4-8.2) L 06/25/18 08:00 Albumin 3.2 g/dl (3.4-5.0) L 06/25/18 08:00 Urine Color Yellow 06/24/18 23:28 Urine Appearance Clear 06/24/18 23:28 Urine pH 5.0 (5.0-8.0) 06/24/18 23:28 Ur Specific [place] 1.013 (1.001-1.035) 06/24/18 23:28 Urine Protein Negative (NEGATIVE) 06/24/18 23:28 Urine Glucose (UA) 3+ (NEGATIVE) H 06/24/18 23:28 Urine Ketones Negative (NEGATIVE) 06/24/18 23:28 Urine Blood Negative (NEGATIVE) 06/24/18 23:28 Urine Nitrite Negative (NEGATIVE) 06/24/18 23:28 Urine Bilirubin Negative (<2.0 mg/dL) 06/24/18 23:28 Urine Urobilinogen Negative mg/dL (0.2-1.0) 06/24/18 23:28 Ur Leukocyte Esterase Negative (NEGATIVE) 06/24/18 23:28 RPR Titer Nonreactive (NONREACTIVE) 06/25/18 08:00 lab noted - Treatment Hospital Course: Detox Protocol Followed, Detoxed Safely, Responded well, Discharged Condition Good, Rehab Referral Accepted Patient has Accepted a Rehab Referral to: [email or web address] - Medication Discharge Medications: Ambulatory Orders Aspirin [ASA -] 81 mg PO DAILY 06/24/18 Atorvastatin Calcium 80 mg PO HS 06/24/18 Clopidogrel Bisulfate [Plavix -] 75 mg PO DAILY 06/24/18 Hydrochlorothiazide [Hctz -] 25 mg PO DAILY 06/24/18 Insulin Degludec [Tresiba Flextouch U-200] 200 unit SQ DAILY 06/24/18 Losartan Potassium [Cozaar -] 50 mg PO DAILY 06/24/18 Metoprolol Tartrate [Lopressor -] 200 mg PO DAILY 06/24/18 Pantoprazole Sodium [Protonix -] 40 mg PO DAILY 06/24/18 Pregabalin [Lyrica -] 150 mg PO BID 06/24/18 Duloxetine HCl [Cymbalta -] 30 mg PO DAILY #30 capsule. 06/25/18 - Diagnosis (1) Alcohol dependence with uncomplicated withdrawal Current Visit: Yes Status: Acute (2) Diabetes Current Visit: Yes Status: Chronic Qualifiers: Diabetes mellitus type: type 2 Diabetes mellitus intermediate accountant insulin use: with senior living use Diabetes mellitus complication status: with hyperglycemia Qualified Code(s): E11.65 - Type 2 diabetes mellitus with hyperglycemia; Z79.4 - longterm (current) use of insulin (3) GERD (gastroesophageal reflux disease) Current Visit: Yes Status: Chronic Qualifiers: Esophagitis presence: esophagitis presence not specified Qualified Code(s) : K21.9 - Gastro-esophageal reflux disease without esophagitis (4) HTN (hypertension) Current Visit: Yes Status: Chronic Qualifiers: Hypertension type: essential hypertension Qualified Code(s): I10 - Essential (primary) hypertension (5) Blood clot in vein Current Visit: Yes Status: Chronic - AMA Did Patient Leave Against Medical Advice: No
== END 2018-06-28 14:35 | disposition home or self-care (01) | DRG 775 ==
LOC: YASAS 11:52 → Y6N 18:05
PROC: HZ2ZZZZ Detoxification Services for Substance Abuse Treatment (ICD-10-PCS; principal; 2018-06-24)
DX: F10.230 Alcohol dependence with withdrawal, uncomplicated (principal); F32.9 Major depressive disorder, single episode, unspecified; I25.2 Old myocardial infarction; I25.10 Atherosclerotic heart disease of native coronary artery without angina pectoris; I10 Essential (primary) hypertension; Z95.5 Presence of coronary angioplasty implant and graft; E78.00 Pure hypercholesterolemia, unspecified; E11.65 Type 2 diabetes mellitus with hyperglycemia; Z79.4 Long term (current) use of insulin; E86.0 Dehydration; G56.03 Carpal tunnel syndrome, bilateral upper limbs; I82.90 Acute embolism and thrombosis of unspecified vein; E66.9 Obesity, unspecified; Z68.30 Body mass index [BMI] 30.0-30.9, adult; R20.9 Unspecified disturbances of skin sensation; L98.9 Disorder of the skin and subcutaneous tissue, unspecified; Z87.891 Personal history of nicotine dependence; Z98.49 Cataract extraction status, unspecified eye; Z79.01 Long term (current) use of anticoagulants
CPT/HCPCS: 36415; 80053; 81003; 82962; 85027; 86593; 93005; 93010